=== PATIENT | male | born 1940 | race Caucasian/White ===

== ENCOUNTER 2019-10-19 13:49 | Inpatient (IN) | payer MEDICARE ==
[2019-10-19] VITALS (98 sets, daily range): BP systolic 114; BP diastolic 57–60; PULSE 74–75; TEMP 98.8–100.1; O2SAT 93–100
[~2019-10-19] VITALS: Ht 182.9 cm; Wt 79.0 kg
[~2019-10-19 13:49] MED LIST: ALEVE 220MG220 MG PO; ALLEGRA 180MG180 MG PO; ATROVENTNS0.03% NS; COLACE 100100 MG/CAP PO; FLOMAX 0.40.4 MG/CAP PO; FLOVENT DI50 MCG/Act IH; IPRATROPIUM BROM3 M1 IH; MIRALAX PA17 GM/Dose PO; MUCINEX 60600 MG/TA1 PO; NORCO 325 MG-51 TAB PO; OMNICEF 300MG300 MG PO; TYLENOL 325MG325 MG PO; ZYPREXA ZYDIS5 MG PO
[2019-10-19 14:39] LABS: BASO % 0.1 % (0.0-2.0); GRAN # 13.2 (1.4-6.5); GRAN % 88.3 % (42.2-75.2); HEMATOCRIT 44.8 % (42.0-52.0); HEMOGLOBIN 15.1 g/dl (13.5-18.0); LYMPH # 1.1 (1.2-3.4); LYMPH % 7.6 % (20.0-51.0); MEAN CELL VOLUME 99 fl (80.0-100.0); MEAN CORPUSCULAR HEMOGLOBIN 34 pg (27.0-31.0); MEAN CORPUSCULAR HGB CONC 34 g/dl (33.0-37.0); MEAN PLATELET VOLUME 9.8 fl (7.4-10.4); MONO # 0.6 (0.1-0.6); MONO % 3.7 % (1.7-9.3); PLATELET COUNT 210 K/mm3 (130-400); RED BLOOD COUNT 4.51 M/mm3 (4.20-5.60); REDCELL DISTRIBUTION WIDTH-CV 12.5 % (11.5-14.5)
[2019-10-19 14:47] LABS: INR 1.1 (0.8-3.0); PROTHROMBIN TIME 12.5 SECONDS (9.7-12.8)
[2019-10-19 14:52] LABS: ALBUMIN 4.6 gm/dL (3.5-5.0); BILIRUBIN,TOTAL 0.6 mg/dL (0.0-1.0); CALCIUM 9.4 mg/dL (8.4-10.2); CREATININE, serum 0.76 (0.66-1.25); TOTAL PROTEIN 7.9 gm/dL (6.4-8.2)
[2019-10-19 15:11] LABS: TROPONIN-I 0.042 ng/mL (0.000-0.035)
[2019-10-19] MEDS ORDERED: COLACE LIQUI10 MG/ML PO (15:33)
[2019-10-19] MEDS ORDERED: NORCO 325 MG-51 TAB PO (15:36)
[2019-10-19] MEDS ORDERED: LIDODERM 5% PATC1 EA TP (15:54)
[2019-10-19 17:38] LABS: ARTERIAL BLD GAS O2 SATURATION 96.1 % (92-100); ARTERIAL BLD GAS TCO2 CT 17.6; ARTERIAL BLOOD GAS BASE EXCESS -6.2 (-2-2); ARTERIAL BLOOD GAS HCO3 16.8 meq/L (22-26); ARTERIAL BLOOD GAS PCO2 26.5 mmHg (35-45); ARTERIAL BLOOD GAS PO2 79.4 mmHg (80-100); ARTERIAL BLOOD GAS pH 7.42 (7.35-7.45)
[2019-10-19 17:48] LABS: COLLECTION METHOD CLEAN CATCH
[2019-10-19 17:58] LABS: MUCOUS Present /lpf; PH 5 (5-8); SQUAMOUS EPITHELIAL None Seen /hpf; URINE APPEARANCE Clear; URINE BACTERIA Rare /hpf; URINE BILIRUBIN Negative (NEGATIVE); URINE BLOOD 1+ (NEGATIVE); URINE COLOR Yellow; URINE GLUCOSE Negative (NEGATIVE); URINE KETONE Negative (NEGATIVE); URINE LEUKOCYTE ESTERASE Negative (NEGATIVE); URINE NITRATE Negative (NEGATIVE); URINE PROTEIN(semi-quant) 1+ (NEGATIVE); URINE UROBILINOGEN Negative (NEGATIVE)
--- NOTE | 2019-10-19 18:40 | NUR ---
PT ARRIVED ON UNIT FROM ED, TEMP 100.1, TIMBO MADE AWARE, OTHER VSS. CONSENT RECEIVED FOR CENTRALLINE PLACEMENT.
--- NOTE | 2019-10-19 19:01 | NUR ---
Vancomycin Initial Dosing Pharmacy Note Ordering provider: Jah Lopez MD Indication/duration: SEPSIS/PNEU, 7 days Relevant comorbidities: LABS: SCr 0.76, CrCl~72, GFR 99 Recommendation: Will give loading dose of Vancomycin 1.5 gm IV x1, then Vancomycin 1.25 gm IV q12h. Pharmacy will continue to monitor and check a Vancomycin trough prior to 4th total dose on 10/21/19. Loading dose: 1.5 grams Maintenance dose: 1.25 grams every 12 hours Trough goal: 15-20 ug/mL
--- NOTE | 2019-10-19 19:10 | NUR ---
RECEIVED REPORT FROM JARROD RONDON. PT LYING IN BED PEACEFULLY. VSS.
--- NOTE | 2019-10-19 19:50 | NUR ---
NOTIFIED JIGNA CASTANO OF PT'S TROPONIN BUT IS TRENDING BACK DOWN, NO NEW ORDERS.
--- NOTE | 2019-10-19 20:34 | NUR ---
SPOKE WITH DR GORMAN WITH [facility] ABOUT VBG RESULTS. SEE DR'S PROGRESS NOTE. NO NEW ORDERS. PT STABLE. NO ACUTE S/S OF DSITRESS NOTED. VSS.
--- NOTE | 2019-10-19 20:50 | NUR ---
JIGNA CASTANO AT BEDSIDE FOR ASSESSMENT AND DISCUSSING POC WITH DAUGHTER IN LAW KOKI. PT RESTING EASILY AND DOES AROUSE TO VERBAL STIMULI. PT APPEARS TO BE AT HIS NORMAL COGNITIVE STATE PER DIL. JIGNA CASTANO NOTIFIED OF TROPONIN AND LA TRENDS.
[2019-10-19] MEDS ORDERED: COLACE 100100 MG/CAP PO (21:18)
[2019-10-19] MEDS ORDERED: FLONASEALLERGY NS (21:20)
[2019-10-19] MEDS ORDERED: ZYPREXA 5MG5 MG PO (21:24)
[2019-10-19] MEDS ORDERED: TYLENOL SU650 MG/SUP RC (21:26)
[2019-10-19] MEDS ORDERED: TYLENOL 325MG325 MG PO (21:26)
[2019-10-19] MEDS ORDERED: DULCOLAX S10 MG/SUPP RC (21:27)
[2019-10-19] MEDS ORDERED: BIOFREEZE 0.2%-1 GE1 TOP (21:27)
[2019-10-19] MEDS ORDERED: ATIVAN 1MG T1 MG/TAB PO (21:28)
[2019-10-19] MEDS ORDERED: IMODIUM 2MG CAPS2 MG PO (21:28)
[2019-10-19] MEDS ORDERED: MYLANTA MAXIMU355 M1 PO (21:29)
[2019-10-19] MEDS ORDERED: MILK OF MA400 MG/52 PO (21:29)
[2019-10-20] VITALS (379 sets, daily range): BP systolic 105–143; BP diastolic 54–87; PULSE 54–105; TEMP 98–99.4; O2SAT 83–100
[2019-10-20 06:19] LABS: BASO % 0.2 % (0.0-2.0); EOS # 0.1 (0.0-0.7); EOS % 0.9 % (0-4.0); GRAN # 8.7 (1.4-6.5); GRAN % 82.2 % (42.2-75.2); LYMPH # 1.4 (1.2-3.4); LYMPH % 12.8 % (20.0-51.0); MEAN CELL VOLUME 102 fl (80.0-100.0); MEAN CORPUSCULAR HGB CONC 33 g/dl (33.0-37.0); MEAN PLATELET VOLUME 9.9 fl (7.4-10.4); MONO # 0.4 (0.1-0.6); MONO % 3.6 % (1.7-9.3); PLATELET COUNT 150 K/mm3 (130-400); RED BLOOD COUNT 3.53 M/mm3 (4.20-5.60); REDCELL DISTRIBUTION WIDTH-CV 12.8 % (11.5-14.5)
[2019-10-20 06:31] LABS: HEMATOCRIT 35.9 % (42.0-52.0); HEMOGLOBIN 11.7 g/dl (13.5-18.0); MEAN CORPUSCULAR HEMOGLOBIN 33 pg (27.0-31.0)
[2019-10-20 06:44] LABS: ALBUMIN 3.3 gm/dL (3.5-5.0); BILIRUBIN,TOTAL 0.6 mg/dL (0.0-1.0); CREATININE, serum 0.73 (0.66-1.25); POTASSIUM 3.9 mmol/L (3.4-5.0); TOTAL PROTEIN 6.1 gm/dL (6.4-8.2)
--- NOTE | 2019-10-20 07:00 | NUR ---
BEDSIDE REPORT RECEIVED FROM JARROD GAN. PATIENT LYING IN BED SLEEPING. HE IS TURNED AND CLEANED AT THIS TIME. CARE TAKEN OVER.
--- NOTE | 2019-10-20 09:15 | NUR ---
KOKI, DAUGHTER IN LAW, HERE AT THIS TIME. UPDATE GIVEN.
--- NOTE | 2019-10-20 09:30 | NUR ---
JARROD ARMSTRONG, HERE TO PLACE PICC LINE
--- NOTE | 2019-10-20 14:37 | NUR ---
coke worker contacted patient's durable power of traffic law attorney #2, Tal Geiger, and confirmed that patient will return to [facility] upon discharge. Choice form completed. [facility] and obtained patient's advance directives and placed on the chart. Worker collaborated with patient's nurse regarding advance directives.
--- NOTE | 2019-10-20 16:00 | NUR ---
DAUGHTER IN LAW RETURNS. UPDATE GIVEN
--- NOTE | 2019-10-20 17:20 | NUR ---
REPORT GIVEN TO JARROD WALTON ON MEDICAL FLOOR. PLAN OF CARE DISCUSSED. PATIENT WILL TRANSFER TO ROOM 354.
--- NOTE | 2019-10-20 18:05 | NUR ---
PATIENT TAKEN TO ROOM 354.
--- NOTE | 2019-10-20 18:17 | NUR ---
patient arrived to room 354 from ICU at this time, family present in the room
--- NOTE | 2019-10-20 20:00 | NUR ---
Pt. resting in bed, easily arousable. Patient is confused, not oriented to place. Vital signs stable at this time. Antibiotics given as ordered. PICC in right upper arm flushed with blood return noted.
[2019-10-21] VITALS (12 sets, daily range): BP systolic 119–151; BP diastolic 56–89; PULSE 64–131; TEMP 97.9–100.6
--- NOTE | 2019-10-21 02:30 | NUR ---
Tele called and reported patient was in RVR with heart rate in the 150s. Vitals obtianed YOANA Vance contacted. 15mg IV cardizem ordered with blood pressures every 5 minutes. Patient heart rate came down to within normal limits.
[2019-10-21 06:16] LABS: BASO % 0.3 % (0.0-2.0); EOS # 0.2 (0.0-0.7); EOS % 2.4 % (0-4.0); GRAN % 76.4 % (42.2-75.2); HEMOGLOBIN 11.7 g/dl (13.5-18.0); LYMPH # 1.3 (1.2-3.4); LYMPH % 16.7 % (20.0-51.0); MEAN CELL VOLUME 98 fl (80.0-100.0); MEAN CORPUSCULAR HEMOGLOBIN 33 pg (27.0-31.0); MEAN CORPUSCULAR HGB CONC 34 g/dl (33.0-37.0); MONO # 0.3 (0.1-0.6); MONO % 3.8 % (1.7-9.3); PLATELET COUNT 146 K/mm3 (130-400); RED BLOOD COUNT 3.52 M/mm3 (4.20-5.60); REDCELL DISTRIBUTION WIDTH-CV 12.3 % (11.5-14.5)
[2019-10-21 06:22] LABS: HEMATOCRIT 34.4 % (42.0-52.0)
[2019-10-21 06:42] LABS: ALBUMIN 3.2 gm/dL (3.5-5.0); BILIRUBIN,TOTAL 0.6 mg/dL (0.0-1.0); CALCIUM 8.1 mg/dL (8.4-10.2); CREATININE, serum 0.68 (0.66-1.25); POTASSIUM 3.4 mmol/L (3.4-5.0)
--- NOTE | 2019-10-21 07:36 | NUR ---
PATIENT IS AWAKE IN BED. HIS BRIEF IS CHANGED AT THIS TIME. HE IS SOFT SPOKEN, FIDGETTY IN THE BED. BED ALARM IS ON. ASSESSMENT COMPLETED
--- NOTE | 2019-10-21 07:45 | NUR ---
Vancomycin Follow-up Pharmacy Note Current regimen: VANCOMYCIN 1.25 Q12H Vancomycin trough: 9.7, STABLE SCr Adjustments: INCREASE TO VANCOMYCIN 1.5 Q12H. NEXT TROUGH 10/23/19 @ 0730
--- NOTE | 2019-10-21 10:20 | NUR ---
PATIENT IS FIDGITING WITH HIS TELEMETRY AND PULLING OFF THE LEADS. I HAVE PUT THE HAND MITTS ON FOR AWHILE TO HELP WITH LEAVING THESE ON.
--- NOTE | 2019-10-21 10:54 | NUR ---
HAND MITTS HAVE BEEN REMOVED. I WILL SEE HOW HE DOES WITH THIS. HE KEEPS ASKING TO TAKE THEM OFF. I HAVE HANDED HIM A FOLDER TO LOOK AT TO KEEP HIM OCCUPIED FOR AWHILE.
--- NOTE | 2019-10-21 11:24 | NUR ---
PATIENT RESTING IN BED. FAMILY FRIEND AT HIS BEDSIDE HE STATES THAT HE IS THE DPOA.
--- NOTE | 2019-10-21 16:50 | NUR ---
IVF RATE CHANGE TO 60ML/HR
--- NOTE | 2019-10-21 19:21 | NUR ---
PATIENT RESTING IN BED. NO SIGNS OF DISTRESS.
--- NOTE | 2019-10-21 21:12 | NUR ---
PT IS AWAKE, ALERT, DISORIENTED AND ONLY FOLLOWS SOME COMMANDS. SPEECH IS SOMETIMES NOT DISCERNABLE, ABLE TO UNDERSTAND SOME WORDS. DOES NOT COMPLETE SENTENCES. PT IS ABLE TO STATE HE IS PAIN WHEN ASKED, ALTHOUGH DOES NOT SPECIFY LOCATION OF PAIN. PT DOES NOT APPEAR SOB, PRODUCTIVE COUGH NOTED, MOIST SOUNDING IN THROAT AND CHEST BUT PT DOES NOT PRESENT SPUTUM WHEN COUGHING. PT HOB RAISED 30 DEGREES. CALL LIGHT WITHIN REACH. BRIEF APPEARS DRY AT THIS TIME.
--- NOTE | 2019-10-21 23:31 | NUR ---
NOTIFIED TIMBO PER PHONE REGARDING PT, TIMBO STATES SHE WILL CALL BACK WHEN ABLE.
--- NOTE | 2019-10-22 01:15 | NUR ---
PT IS AWAKE IN BED, FIDGITING SLIGHTLY WITH CLOTHING, BLANKETS. PT REMAINS CONFUSED AND SOFT SPOKEN. PT INCONTINENT OF STOOL AND URINE, BRIEF CHANGED AT THIS TIME. MERCEDES CARE PROVIDED, SKIN INTACT. PT REPOSITIONED WITH PILLOW PLACED UNDER LEFT HIP. PT CONT TO HAVE A MOIST COUGH, THIN SPUTUM NOTED ON PT GOWN AND FACE. PT FACE CLEANED WITH CLEANSING WIPES. CALL LIGHT WITHIN REACH.
--- NOTE | 2019-10-22 02:06 | NUR ---
PT OPEN MOUTH BREATHING, RR 36; PT DOES NOT APPEAR IN DISTRESS. RADIAL PULSE PALPATED; STRONG, REGULAR. PT SKIN REMAINS WARM AND DIAPHORETIC. PT IS POSITIONED ON L SIDE WITH PILLOWS PLACED FOR COMFORT. O2 REMAINS ON AT 2L.
--- NOTE | 2019-10-22 03:22 | NUR ---
TIMBO CONTACTED REGARDING PT'S SOTALOL SCHEDULED HS AND PT IS CURRENTLY NPO. REPORTED HR IS CURRENTLY 73 AND IRREG. PT CONT TO HAVE A MOIST COUGH AND DOES NOT GET OUT SPUTUM. PT IS NPO FOR SWALLOW STUDY IN AM AND POSSIBLE RECENT EPISODES OF ASPIRATION. ORDERED TO CONT TO MONITOR PT THROUGH THE NIGHT.
[2019-10-22 03:49] VITALS: BP 136/52; PULSE 71; TEMP 98.2
--- NOTE | 2019-10-22 05:49 | NUR ---
PT HAS HAD A BETTER NIGHT, REMAINS CONFUSED BUT IS PLEASANT AND COOPERATIVE. PT HAS BEEN SLIGHTLY FIDGETY TO CLOTHING, BEDDING BUT HAS LEFT ALL TUBING AND WIRES IN PLACE. PT HAD A LOW GRADE FEVER EARLIER IN THE SHIFT BUT HAS SINCE COME DOWN TO NORMAL. PICC LINE TO L UPPER ARM IS INFUSING WITHOUT ISSUES. PT DID NOT RECEIVE HIS DOSE OF SOTALOL AT HS D/T BEING NPO FOR SPEECH EVAL TODAY. HR HAS REMAINED CONTROLLED. CALL LIGHT WITHIN REACH.
[2019-10-22 05:59] LABS: BASO % 0.3 % (0.0-2.0); EOS # 0.2 (0.0-0.7); EOS % 2.9 % (0-4.0); GRAN # 4.9 (1.4-6.5); GRAN % 74.4 % (42.2-75.2); HEMOGLOBIN 10.6 g/dl (13.5-18.0); LYMPH # 1.1 (1.2-3.4); LYMPH % 17.5 % (20.0-51.0); MEAN CELL VOLUME 98 fl (80.0-100.0); MEAN CORPUSCULAR HEMOGLOBIN 33 pg (27.0-31.0); MEAN CORPUSCULAR HGB CONC 34 g/dl (33.0-37.0); MEAN PLATELET VOLUME 10.1 fl (7.4-10.4); MONO # 0.3 (0.1-0.6); MONO % 4.6 % (1.7-9.3); PLATELET COUNT 167 K/mm3 (130-400); RED BLOOD COUNT 3.19 M/mm3 (4.20-5.60)
[2019-10-22 06:24] LABS: ALBUMIN 3.1 gm/dL (3.5-5.0); BILIRUBIN,TOTAL 0.8 mg/dL (0.0-1.0); CREATININE, serum 0.65 (0.66-1.25); MAGNESIUM 2.1 mg/dL (1.6-2.3); POTASSIUM 3.4 mmol/L (3.4-5.0); TOTAL PROTEIN 5.8 gm/dL (6.4-8.2)
[2019-10-22 06:29] LABS: HEMATOCRIT 31.1 % (42.0-52.0)
--- NOTE | 2019-10-22 07:06 | NUR ---
REPORT GIVEN TO JARROD RAMOS.
[2019-10-22 07:36] VITALS: BP 160/72; PULSE 71; TEMP 99
--- NOTE | 2019-10-22 08:01 | NUR ---
Pt resting in bed with no s/s of distress noted. Pt is alert and moves his eyes and makes facial expressions but is non verbal. Brief changed with large amount of urine noted based upon weight and moisture of brief. Skin is clean dry and intact with no red areas noted. Pt repositioned from left side to right side with pillow under his hip. Lung sounds in anterior upper dong noted to be be CTA but there is some coarseness noted in his bilat bases. Call light within reach and no needs noted at this time.
--- NOTE | 2019-10-22 09:29 | NUR ---
ST was present and was able to get Pt to take his ASA PO but was unable to have the Pt swallow his betapace, therefore this med was not given as charted under the MAR
[2019-10-22 12:54] VITALS: BP 135/55; PULSE 72; TEMP 99.2
--- NOTE | 2019-10-22 13:03 | NUR ---
Pt is resting peacefully in his chair with his personal counselor present and the tv on. Pt shows no s/s of distress at this time. Iv fluids running as ordered with no c/o of discomfort at picc site. Will continue to monitor.
--- NOTE | 2019-10-22 13:28 | NUR ---
Per Dr Jesus, contact Dr Arciniega ([facility]) and verify Pt cardio-version and NPO status. Dr Jesus states that Pt meds can be crushed and per Pt caregiver Pt has no trouble eating solid foods at home.
--- NOTE | 2019-10-22 13:35 | NUR ---
Per Dr Arciniega keep patient NPO until seen by Dr Arciniega. Pt and caregiver educated on NPO clarification.
--- NOTE | 2019-10-22 14:59 | NUR ---
Pt resting peacefully at this time with eyes intermittently open and closed. DIRECTOR OF PHYSICIAN PRACTICES reports that Pt had an adult brief that was noted to have urine and a medium loose to watery stool. Pt caregiver has step away from bedside and reports that family is on the way to see Pt.
[2019-10-22 17:07] VITALS: BP 151/61; PULSE 60; TEMP 98.7
[2019-10-22 21:18] VITALS: BP 163/83; PULSE 54; TEMP 98.6
[2019-10-23] VITALS (7 sets, daily range): BP systolic 112–168; BP diastolic 62–91; PULSE 65–87; TEMP 97.3–99.6
--- NOTE | 2019-10-23 04:38 | NUR ---
Patient rested well throughout the night. Sit to stand lift utilized to get patient back into bed last night with 4 assist from nurses for safety. IV antibiotics administered as ordered. Repositioned q2 hours. Noted to be incontinent of bowel and bladder. Patient unable to talk in sentences that are coherent. Will continue to monitor.
--- NOTE | 2019-10-23 07:00 | NUR ---
Bedside shift report received from JARROD Villegas. pT in bed resting with eyes closed, will continue to monitor.
--- NOTE | 2019-10-23 08:40 | NUR ---
Assessment charted. Pt had a large loost bowel movement this am, incontinent in brief, pericare and change provided. Pt is awake and resting in bed but not agreeable to most interventions. will not open mouth this am to drink water or take meds with the applesauce. PICC to [facility] flushes well and good blood return. No skin breakdown noted. Only response from patient this nerissa is "no". Will continue to monitor.
--- NOTE | 2019-10-23 10:32 | NUR ---
KRISSY met with the patient and his DPOA-HC, Tal, to review discharge plan and discuss PT's recommendation of SNF vs retirement with increased assistance. Tal reports that he prefers for the patient to return back to [facility]. He states that he would be interested in home health services, so that the patient can continue PT/OT. KRISSY presented Tal with [employer]'s list of home health agencies that serve [place]. The patient chose [facility]. KRISSY contacted and faxed a referral to Trenton at [facility]. Trenton reports that they are able to accept the patient for services. KRISSY contacted and faxed updates to Raina (ph#[phone]) at [facility]. KRISSY to continue to follow.
--- NOTE | 2019-10-23 13:46 | NUR ---
KRISSY collaborated with the patient's PA-Hardik, Silvia. The patient is a max assist of two and the clinical team is recommeding SNF for the patient. KRISSY then received a phone call from Afia at [facility]. Afia reports that they would not be able to meet the patient's needs at [facility] and would also recommend SNF. KRISSY then contacted the patient's DPOA-HC, Tal, and informed him on the clinical team's and [facility]'s recommendation. Tal is agreeable to SNF. KRISSY explained the Patient Choice Form to Tal and reviewed [employer]'s list of nursing homes around [place]. Tal chose [facility]. KRISSY faxed a referral to Afia at [facility]. Afia reports that they are able to accept the patient and are able to take him this weekend, if ready to discharge. SW to continue to follow.
--- NOTE | 2019-10-23 18:38 | NUR ---
Pt doign well this aftenroon. Incontinent of urine in bed. Resting quielty, fed lunch this afternoon and needs to be encouraged. Resting in bed, bed alarm on, will give bedside shift report to nighthshift nruse who will resume care.
--- NOTE | 2019-10-23 20:37 | NUR ---
Sitting up in bed with eyes open. When asking patient questions he mumbles incoherent answers back. Respirations even and unlabored. No signs or symptoms of discomfort noted.
--- NOTE | 2019-10-23 23:29 | NUR ---
Lying in bed in supine position with eyes open. Denies pain when asked. Patient is alert but confused. Stiffens up extremities when attempt to move the patient. Patient incontinent of urine at this time, denise care provided and new brief applied. Repositioned on to left side in the bed. Patient denies needs at this time.
--- NOTE | 2019-10-24 01:00 | NUR ---
Lying in supine position in bed with eyes closed. Respirations even and unlabored. No signs or symptoms of discomfort noted at this time.
[2019-10-24 03:33] VITALS: BP 152/67; PULSE 79; TEMP 99.2
--- NOTE | 2019-10-24 03:36 | NUR ---
Lying in bed with eyes closed. Opens eyes when name called out. Brief checked and remains dry at this time. Patient takes sips of water without difficulty. Remains confused. No signs or symptoms of discomfort noted at this time.
--- NOTE | 2019-10-24 05:46 | NUR ---
Repositioned in the bed. Patient incontinent of urine. Valerie care provided and new brief applied. Offered water and patient declines. Voices no further needs at this time.
--- NOTE | 2019-10-24 05:53 | NUR ---
Hep XA lab drawn by lab in the right wrist. Heparin drip restarted at this time.
--- NOTE | 2019-10-24 07:00 | NUR ---
Report received from JARROD Finn. Pt in bed resting with eyes closed, will continue to monitor.
[2019-10-24 07:12] LABS: BASO % 0.4 % (0.0-2.0); EOS # 0.3 (0.0-0.7); EOS % 5.3 % (0-4.0); GRAN # 3.6 (1.4-6.5); GRAN % 64.6 % (42.2-75.2); LYMPH # 1.3 (1.2-3.4); LYMPH % 23.3 % (20.0-51.0); MEAN CELL VOLUME 96 fl (80.0-100.0); MEAN CORPUSCULAR HEMOGLOBIN 33 pg (27.0-31.0); MEAN CORPUSCULAR HGB CONC 34 g/dl (33.0-37.0); MEAN PLATELET VOLUME 10.1 fl (7.4-10.4); MONO # 0.3 (0.1-0.6); PLATELET COUNT 190 K/mm3 (130-400); RED BLOOD COUNT 3.37 M/mm3 (4.20-5.60); REDCELL DISTRIBUTION WIDTH-CV 11.9 % (11.5-14.5)
[2019-10-24 07:19] VITALS: BP 150/69; PULSE 69; TEMP 97.7
[2019-10-24 07:25] LABS: HEMATOCRIT 32.4 % (42.0-52.0)
[2019-10-24 07:27] LABS: CALCIUM 8.6 mg/dL (8.4-10.2); CREATININE, serum 0.7 (0.66-1.25); POTASSIUM 3.3 mmol/L (3.4-5.0)
--- NOTE | 2019-10-24 09:01 | NUR ---
Assessment charted. Pt appears better today, more awake nad alert. Trying to get out of bed, had an incontinent BM in brief. Sent sample down per orders and cleaned and provided pericare. Sat upright and assisting with meds crushed in pudding, pt taking well today and even holding own cup and kleenex and doing independently. PICC to [facility] flushes and good blood return. Bed alarm on. Will continue ot monitor.
[2019-10-24 11:24] VITALS: BP 164/73; PULSE 80; TEMP 99
[2019-10-24] MEDS ORDERED: ELIQUIS 5MG PO (13:36)
[2019-10-24] MEDS ORDERED: CORDARONE200 MG/TAB PO (13:37)
[2019-10-24] MEDS ORDERED: ASPIRIN E.C. 8181 MG PO (13:37)
[2019-10-24] MEDS ORDERED: NORCO 325 MG-51 TAB PO (14:17)
[2019-10-24] MEDS ORDERED: ATIVAN 1MG T1 MG/TAB PO (14:17)
[2019-10-24 14:47] VITALS: BP 164/73; PULSE 80; TEMP 99
--- NOTE | 2019-10-24 15:00 | NUR ---
PICC removed per orders from [facility]. Pt tolerated well, pressure held for 5 minutes, no signs of complications, tip blunt and same length as insertion date. Pt being changed and prepared for discharge to [facility] when they arrive. Pt will leave with all belongings and ride with KAYLEY's . Report called to [facility] but not answer, VM left. Packet will be given to transport with scripts included. Criteria met. Awaiting transport from [facility].
--- NOTE | 2019-10-24 15:25 | NUR ---
Pt transport arrived. Packet given, criteria met.
--- NOTE | 2019-10-24 16:44 | NUR ---
KRISSY received a call from patients nurse reporting a discharge for today. KRISSY contacted Delphine with [facility] to arrange for transport. KRISSY sent updated and further information as requested by Delphine. Krissy also notified patients ludy Parada about 3pm discharge.
== END 2019-10-24 15:30 | DRG 871 ==
LOC: COL.ER 13:49 → ICU 17:13 → MEDICAL 10-20 17:29
PROVIDERS: Emergency Medicine; Nurse Practitioner Family; Physician Assistant; ADMIT Internal Medicine
PROC: 02HV33Z Insertion of Infusion Device into Superior Vena Cava, Percutaneous Approach (ICD-10-PCS; principal; 2019-10-20)
DX: A41.9 Sepsis, unspecified organism (principal); J18.9 Pneumonia, unspecified organism; J96.01 Acute respiratory failure with hypoxia; I21.A1 Myocardial infarction type 2; E87.2 Acidosis; F03.91 Unspecified dementia, unspecified severity, with behavioral disturbance; I48.20 Chronic atrial fibrillation, unspecified; Z66 Do not resuscitate; G89.29 Other chronic pain; N40.0 Benign prostatic hyperplasia without lower urinary tract symptoms; R53.81 Other malaise; K52.9 Noninfective gastroenteritis and colitis, unspecified; R00.1 Bradycardia, unspecified; R55 Syncope and collapse
CPT/HCPCS: 99223-AI; 99231-AI; 99232-AI; 99233-AI; 99239; A4216; C1751; C9113; J0456; J0696; J1650; J2405; J2543; J3370; J3480; J7030; J7040; J7050; Q9967